=== PATIENT | female | born 1975 | race Caucasian/White ===

== ENCOUNTER 2018-07-11 09:11 | Emergency (ER) | payer OTHER ==
[~2018-07-11] VITALS: Ht 157.5 cm; Wt 81.7 kg
[~2018-07-11 09:11] MED LIST: DOXYCYCLINE 10100 MG PO; FLEXERIL PO; HYDROCODONE-AP1 EAC6 PO; IBUPROFEN200 M2 PO; MEDROLDOSEPACK PO; NAPROSYN500 MG PO; PREDNISONE 20 M20 M1 PO; TESSALON200 MG PO; TORADOL 10 MG T10 MG PO; VICODIN 5-5001 EACH PO
[2018-07-11 09:34] LABS: ABSOLUTE BASOPHILS 0.1 thou/uL (0.0-0.2); ABSOLUTE EOSINOPHILS 0.1 thou/uL (0.0-0.7); ABSOLUTE LYMPHOCYTES 2.1 thou/uL (0.8-5.3); ABSOLUTE MONOCYTES 0.4 thou/uL (0.0-1.2); BASOPHILS 1.3 %; HEMOGLOBIN 12.8 gm/dL (12.0-15.0); LYMPHOCYTES 21.4 %; MCV 81.3 fL (80.0-100.0); MONOCYTES 3.8 %; MPV 7.2 fl. (7.2-11.1); NUCLEATED RBCS 0 /100WBC; PLATELET COUNT* 348 thou/uL (150-400); POLYS 72.5 %; RBC 4.92 mil/uL (4.20-5.00); WBC 9.6 thou/uL (4.0-11.0)
[2018-07-11 09:43] LABS: ANION GAP 9 mmol/L (7-16); BUN 12 mg/dL (7-18); CALCIUM 9.2 mg/dL (8.5-10.1); CHLORIDE 100 mmol/L (98-107); CO2 29 mmol/L (21-32); CREATININE 0.8 mg/dL (0.6-1.3); GLUCOSE 103 mg/dL (70-99); POTASSIUM 4.2 mmol/L (3.5-5.1); SODIUM 138 mmol/L (136-145)
[2018-07-11 09:53] LABS: ALBUMIN 3.7 g/dL (3.4-5.0); ALKALINE PHOSPHATASE 119 U/L (46-116); LIPASE 162 U/L (73-393); MAGNESIUM 1.9 mg/dL (1.8-2.4); NT-PRO BRAIN NAT PEPTIDE 16 pg/mL (<300); SGOT 25 U/L (15-37); SGPT 27 U/L (30-65); TOTAL BILIRUBIN 0.7 mg/dL (<0.1-1.0); TOTAL PROTEIN 7.5 g/dL (6.4-8.2); TROPONIN-I LEVEL <0.06 ng/mL (<0.06)
[2018-07-11 11:55] VITALS: BP 124/88
--- NOTE | 2018-07-11 16:40 | EKG ---
[place] [address] ELECTROCARDIOGRAM REPORT Name: MARIANO GLASS Room: [facility]#: [id number] Admission: 07/11/18 Attend Phys: Discharge: 07/11/18 Date of : 79 Report #: [id number] THIS REPORT FOR: //name// [facility] ED Test Date: 2018-07-11 Test Time: 11:16:49 Pat Name: MARIANO GLASS Department: Room: Gender: F Marketing Summer Intern: [facility] : 1975 Requested By: Robe Villalta Order Number: [id number] MD: Luke Thao Measurements Intervals [place] Rate: 82 P: 70 DE: 172 QRS: 65 QRSD: 84 T: 32 QT: 369 QTc: 431 Interpretive Statements Sinus rhythm Probable left atrial enlargement Compared to ECG 10/08/2008 19:28:18 Sinus arrhythmia no longer present Electronically Signed On 07-11-2018 16:40:07 SEARCH DEVELOPER by Luke Thao [email or web address] <ELECTRONICALLY SIGNED> By: Luke Thao MD, [facility] 07/11/18 [facility] 15 15 Luke Thao MD, FACC /EPI
--- NOTE | 2018-07-11 16:40 | EKG ---
[place] [address] ELECTROCARDIOGRAM REPORT Name: MARIANO GLASS Room: [facility]#: [id number] Admission: 07/11/18 Attend Phys: Discharge: 07/11/18 Date of : 79 Report #: [id number] THIS REPORT FOR: //name// [facility] ED Test Date: 2018-07-11 Test Time: 09:14:18 Pat Name: MARIANO GLASS Department: Room: Gender: F Medical Record Technician: : 1975 Requested By: Robe Villalta Order Number: [id number] MD: Luke Thao Measurements Intervals [place] Rate: 86 P: 59 MO: 150 QRS: 72 QRSD: 93 T: 33 QT: 348 QTc: 417 Interpretive Statements Sinus rhythm Possibleanteroseptal infarct, old Compared to ECG 10/08/2008 19:28:18 Myocardial infarct finding now present Sinus arrhythmia no longer present Electronically Signed On 07-11-2018 16:39:46 GROUNDSMAN by Luke Thao [email or web address] <ELECTRONICALLY SIGNED> By: Luke Thao MD, [facility] 07/11/18 1639 3 Luke Thao MD, [facility] /EPI
== END 2018-07-11 12:25 | disposition home or self-care (01) ==
LOC: M.ERS 09:11
PROVIDERS: Emergency Medicine Emergency Medical Services
DX: R07.89 Other chest pain (principal); J44.9 Chronic obstructive pulmonary disease, unspecified; F17.210 Nicotine dependence, cigarettes, uncomplicated; Z88.5 Allergy status to narcotic agent

== ENCOUNTER 2018-10-03 09:10 | Emergency (ER) | payer OTHER ==
[~2018-10-03] VITALS: Ht 157.5 cm; Wt 80.7 kg
[2018-10-03] MEDS ORDERED: NAPROSYN500 MG PO (09:24)
[2018-10-03] MEDS ORDERED: AZITHROMYCIN 2250 MG PO ×2 (09:25)
[2018-10-03 10:20] LABS: ABSOLUTE EOSINOPHILS 0.1 thou/uL (0.0-0.7); ABSOLUTE LYMPHOCYTES 2.7 thou/uL (0.8-5.3); ABSOLUTE MONOCYTES 0.4 thou/uL (0.0-1.2); ABSOLUTE NEUTROPHILS 7.3 thou/uL (1.6-8.1); BASOPHILS 0.2 %; EOSINOPHILS 1.1 %; HEMATOCRIT 40.2 % (37.0-47.0); HEMOGLOBIN 12.9 gm/dL (12.0-15.0); LYMPHOCYTES 26.1 %; MCH 25.9 pg (26.0-34.0); MCHC 32.2 g/dL (28.0-37.0); MCV 80.5 fL (80.0-100.0); MONOCYTES 3.8 %; MPV 7.4 fl. (7.2-11.1); NUCLEATED RBCS 0 /100WBC; PLATELET COUNT* 324 thou/uL (150-400); POLYS 68.8 %; RBC 4.99 mil/uL (4.20-5.00); RDW-CV 16.6 % (10.5-14.5); WBC 10.5 thou/uL (4.0-11.0)
[2018-10-03 10:24] LABS: CALCIUM 8.6 mg/dL (8.5-10.1); CREATININE 0.9 mg/dL (0.6-1.3); POTASSIUM 3.7 mmol/L (3.5-5.1)
[2018-10-03 10:25] LABS: INR 0.9; PROTIME 9.7 Seconds (9.20-11.50)
[2018-10-03 10:29] LABS: ALBUMIN 3.3 g/dL (3.4-5.0); TOTAL BILIRUBIN 0.4 mg/dL (<0.1-1.0); TOTAL PROTEIN 7.2 g/dL (6.4-8.2)
[2018-10-03 11:55] LABS: ESR (SEDRATE) 22 mm/hr (0-20)
[2018-10-03] MEDS ORDERED: NORCO 5-325 TA1 EACH PO (14:28)
[2018-10-03 15:03] VITALS: BP 129/74
== END 2018-10-03 15:05 | disposition home or self-care (01) ==
LOC: M.ERS 09:10
PROVIDERS: Personal Emergency Response Attendant
DX: G52.9 Cranial nerve disorder, unspecified (principal); R51 Headache; F17.210 Nicotine dependence, cigarettes, uncomplicated; J44.9 Chronic obstructive pulmonary disease, unspecified; Z88.5 Allergy status to narcotic agent

== ENCOUNTER → 2018-11-03 | Outpatient (CLI) | payer OTHER ==
[~2018-11-03] MED LIST changes: +AZITHROMYCIN 2250 MG PO; +NORCO 5-325 TA1 EACH PO
== END ==
LOC: M.LAB 07:00 → M.CT 08:00
DX: Z32.00 Encounter for pregnancy test, result unknown (principal); J44.1 Chronic obstructive pulmonary disease with (acute) exacerbation; R91.1 Solitary pulmonary nodule

== ENCOUNTER 2019-04-23 06:28 | Emergency (ER) | payer OTHER ==
[~2019-04-23] VITALS: Ht 157.5 cm; Wt 79.4 kg
[2019-04-23] MEDS ORDERED: VALACYCLOVIR500 MG PO (07:29)
[2019-04-23] MEDS ORDERED: IBUPROFEN 800800 MG PO (07:29)
[2019-04-23] MEDS ORDERED: HYDROCODON-ACE1 EAC7 PO (07:29)
[2019-04-23] MEDS ORDERED: ACYCLOVIR 200200 MG PO (07:41)
[2019-04-23 07:43] VITALS: BP 126/78
== END 2019-04-23 07:35 | disposition home or self-care (01) ==
LOC: M.ERS 06:28
DX: J06.9 Acute upper respiratory infection, unspecified (principal); M94.0 Chondrocostal junction syndrome [Tietze]; B00.1 Herpesviral vesicular dermatitis; F17.210 Nicotine dependence, cigarettes, uncomplicated; J44.9 Chronic obstructive pulmonary disease, unspecified; Z88.5 Allergy status to narcotic agent

== ENCOUNTER 2020-05-03 11:17 | Emergency (ER) | payer OTHER ==
[~2020-05-03] VITALS: Ht 157.5 cm; Wt 79.4 kg
[~2020-05-03 11:17] MED LIST changes: +ACYCLOVIR 200200 MG PO; +HYDROCODON-ACE1 EAC7 PO; +IBUPROFEN 800800 MG PO; +VALACYCLOVIR500 MG PO
[2020-05-03] MEDS ORDERED: METFORMIN HCL500 M3 PO (11:32)
[2020-05-03 12:25] LABS: URINE BILIRUBIN NEGATIVE (Negative); URINE BLOOD TRACE (Negative); URINE CLARITY CLEAR; URINE COLOR YELLOW; URINE GLUCOSE-RANDOM NEGATIVE (Negative); URINE KETONES 1+ (Negative); URINE LEUKOCYTES 1+ (Negative); URINE NITRITE NEGATIVE (Negative); URINE PROTEIN TRACE (Negative); URINE SPECIFIC GRAVITY >= 1.030 (1.005-1.030); URINE UROBILINOGEN 0.2 E.U./dl (0.2-1.0)
[2020-05-03 12:31] LABS: SQUAMOUS 0-3 Few /LPF (0-3)
[2020-05-03 12:32] LABS: CASTS None Seen /LPF (None Seen); CRYSTALS None Seen /LPF (None Seen); URINE RBC 0-2 Rare /HPF (0-2); URINE WBC 0-5 Rare /HPF (0-5)
[2020-05-03 12:54] LABS: CALCIUM 8.2 mg/dL (8.5-10.1); CREATININE 0.7 mg/dL (0.6-1.3); POTASSIUM 3.9 mmol/L (3.5-5.1)
[2020-05-03 12:56] LABS: ALBUMIN 3.9 g/dL (3.4-5.0); TOTAL BILIRUBIN 0.6 mg/dL (<0.1-1.0); TOTAL PROTEIN 7.7 g/dL (6.4-8.2)
[2020-05-03 13:24] LABS: ABSOLUTE BASOPHILS 0.1 thou/uL (0.0-0.2); ABSOLUTE EOSINOPHILS 0.2 thou/uL (0.0-0.7); ABSOLUTE LYMPHOCYTES 1.7 thou/uL (0.8-5.3); ABSOLUTE MONOCYTES 0.8 thou/uL (0.0-1.2); ABSOLUTE NEUTROPHILS 12.9 thou/uL (1.6-8.1); BASOPHILS 0.7 %; HEMATOCRIT 40.3 % (37.0-47.0); HEMOGLOBIN 13.1 gm/dL (12.0-15.0); LYMPHOCYTES 10.9 %; MCH 24.8 pg (26.0-34.0); MCHC 32.5 g/dL (28.0-37.0); MCV 76.3 fL (80.0-100.0); MPV 7.5 fl. (7.2-11.1); NUCLEATED RBCS 0 /100WBC; PLATELET COUNT* 313 thou/uL (150-400); POLYS 82.4 %; RBC 5.28 mil/uL (4.20-5.00); RDW-CV 18.4 % (10.5-14.5); WBC 15.6 thou/uL (4.0-11.0)
[2020-05-03] MEDS ORDERED: FLAGYL500 M1 PO (13:41)
[2020-05-03] MEDS ORDERED: CIPRO500 MG PO (13:41)
[2020-05-03 13:55] VITALS: BP 123/65
== END 2020-05-03 13:55 | disposition home or self-care (01) ==
LOC: M.ERS 11:17
PROVIDERS: Physician Assistant
DX: K52.9 Noninfective gastroenteritis and colitis, unspecified (principal); Z20.828 Contact with and (suspected) exposure to other viral communicable diseases; J44.9 Chronic obstructive pulmonary disease, unspecified; F17.210 Nicotine dependence, cigarettes, uncomplicated; Z88.5 Allergy status to narcotic agent

== ENCOUNTER 2020-11-23 02:48 | Emergency (ER) | payer OTHER, MEDICAID ==
[~2020-11-23] VITALS: Ht 157.5 cm; Wt 77.1 kg
[~2020-11-23 02:48] MED LIST changes: +CIPRO500 MG PO; +FLAGYL500 M1 PO; +METFORMIN HCL500 M3 PO
[2020-11-23] MEDS ORDERED: ROXICODONE5 M2 PO (02:59)
[2020-11-23] MEDS ORDERED: TYLENOL325 MG PO (03:00)
[2020-11-23] MEDS ORDERED: IBUPROFEN 800800 M1 PO (03:00)
[2020-11-23 03:08] LABS: URINE BILIRUBIN NEGATIVE (Negative); URINE BLOOD 2+ (Negative); URINE CLARITY CLEAR; URINE COLOR YELLOW; URINE GLUCOSE-RANDOM NEGATIVE (Negative); URINE KETONES NEGATIVE (Negative); URINE NITRITE-REFLEX NEGATIVE (Negative); URINE PROTEIN 1+ (Negative); URINE SPECIFIC GRAVITY 1.015 (1.005-1.030); URINE UROBILINOGEN 0.2 E.U./dl (0.2-1.0)
[2020-11-23 03:13] LABS: URINE LEUKOCYTES-REFLEX 3+ (Negative)
[2020-11-23 03:17] LABS: ABSOLUTE BASOPHILS 0.1 thou/uL (0.0-0.2); ABSOLUTE EOSINOPHILS 0.1 thou/uL (0.0-0.7); ABSOLUTE MONOCYTES 0.5 thou/uL (0.0-1.2); ABSOLUTE NEUTROPHILS 6.2 thou/uL (1.6-8.1); BASOPHILS 0.7 %; EOSINOPHILS 1.8 %; HEMATOCRIT 30.9 % (37.0-47.0); HEMOGLOBIN 10.2 gm/dL (12.0-15.0); LYMPHOCYTES 12.3 %; MCH 28.4 pg (26.0-34.0); MCV 86.2 fL (80.0-100.0); MONOCYTES 6.2 %; MPV 6.8 fl. (7.2-11.1); NUCLEATED RBCS 0 /100WBC; PLATELET COUNT* 346 thou/uL (150-400); RBC 3.58 mil/uL (4.20-5.00); RDW-CV 19.3 % (10.5-14.5); WBC 7.8 thou/uL (4.0-11.0)
[2020-11-23 03:25] LABS: CALCIUM 8.9 mg/dL (8.5-10.1); CREATININE 0.9 mg/dL (0.6-1.3)
[2020-11-23 03:40] LABS: CASTS None Seen /LPF (None Seen); SQUAMOUS 4-10 Moderate /LPF (0-3)
[2020-11-23 03:41] LABS: CRYSTALS None Seen /LPF (None Seen); URINE WBC-REFLEX >25 Many /HPF (0-5)
[2020-11-23] MEDS ORDERED: BACTRIM DS TAB1 EACH PO (05:26)
[2020-11-23] MEDS ORDERED: DILAUDID 4 MG TA4 M1 PO (05:26)
[2020-11-23] MEDS ORDERED: PYRIDIUM200 MG PO (05:36)
[2020-11-23 05:38] VITALS: BP 152/77
== END 2020-11-23 05:39 | disposition home or self-care (01) ==
LOC: M.ERS 02:48
PROVIDERS: Emergency Medicine
DX: N39.0 Urinary tract infection, site not specified (principal); N90.89 Other specified noninflammatory disorders of vulva and perineum; J44.9 Chronic obstructive pulmonary disease, unspecified; F17.210 Nicotine dependence, cigarettes, uncomplicated; Z88.5 Allergy status to narcotic agent